=== PATIENT | female | born 1970 | race Caucasian/White ===

== ENCOUNTER 2017-01-30 23:33 | Emergency (ER) | payer MEDICAID ==
[~2017-01-30] VITALS: Ht 170.2 cm; Wt 64.1 kg
[2017-01-31 00:32] VITALS: BP 104/85
== END 2017-01-31 00:44 | disposition home or self-care (01) ==
LOC: ED 23:33
DX: L73.9 Follicular disorder, unspecified (principal)
CPT/HCPCS: 90715

== ENCOUNTER 2017-03-20 12:58 | Emergency (ER) | payer MEDICAID ==
[2017-03-20 14:34] VITALS: BP 109/46
== END 2017-03-20 14:34 | disposition home or self-care (01) ==
LOC: ED 12:58
DX: K52.9 Noninfective gastroenteritis and colitis, unspecified (principal); J45.909 Unspecified asthma, uncomplicated; Z79.899 Other long term (current) drug therapy; Z79.52 Long term (current) use of systemic steroids
CPT/HCPCS: Q0162

== ENCOUNTER 2017-07-14 18:03 | Emergency (ER) | payer OTHER ==
[~2017-07-14] VITALS: Ht 170.2 cm; Wt 69.4 kg
[2017-07-14 18:27] VITALS: BP 125/74; Ht 170.2 cm; Wt 69.4 kg
== END 2017-07-14 20:34 | disposition left against medical advice (07) ==
LOC: ED 18:03
DX: Z53.21 Procedure and treatment not carried out due to patient leaving prior to being seen by health care provider (principal)

== ENCOUNTER 2017-08-09 20:58 | Emergency (ER) | payer MEDICAID ==
[~2017-08-09] VITALS: Ht 170.2 cm; Wt 68.0 kg
[2017-08-09 21:31] VITALS: Ht 170.2 cm; Wt 68.0 kg
[2017-08-09 22:59] VITALS: BP 124/77
== END 2017-08-09 22:59 | disposition home or self-care (01) ==
LOC: ED 20:58
DX: T19.2XXA Foreign body in vulva and vagina, initial encounter (principal); J45.909 Unspecified asthma, uncomplicated; F31.9 Bipolar disorder, unspecified; F20.9 Schizophrenia, unspecified